=== PATIENT | female | born 1945 | race Caucasian/White ===

== ENCOUNTER → 2017-06-06 | Outpatient (CLI) | payer OTHER ==
[~2017-06-06] MED LIST: ALPRAZOLAM2 MG PO; AMBIEN 10 MG TA10 MG PO; AMITRIPTYLINE H25 M2 PO; ATIVAN0.5 MG PO; BACTRIM DS TAB1 EACH PO; BYSTOLIC2.5 MG PO; FEMHRT 0.5 MG-1 EACH PO; HYDROCODON-ACE1 EAC5 PO; HYDROCODONE-AP1 EAC6 PO; HYDROXYCHLOROQ200 M1 PO; LISINOPRIL5 MG PO; MEDROLDOSEPACK PO; MELOXICAM15 MG PO; MOBIC7.5 M1 PO; NABUMETONE 500500 M1 PO; NEURONTIN 300300 M1 PO; NEURONTIN300 MG PO; NORCO 5-325 TA1 EACH PO; NORFLEX100 MG PO; OMEPRAZOLE 20 M20 M1 PO; PERCOCET 10-321 EACH; PERCOCET PO; PREDNISONE 5 MG5 M1 PO; PREVACID15 MG PO; PRILOSEC20 MG PO; REQUIP 0.25 M0.25 MG PO; TESSALON PERLE100 MG PO; TIZANIDINE HCL 22 M1 PO; TRAMADOL 50 MG50 MG PO; VALACYCLOVIR500 MG PO; VITAMIN D 5050000 I1 PO; VITAMIN D-40400 UNIT PO; VITAMIN D250000 UNIT PO; WELLBUTRIN SR150 MG PO; XANAX 0.25 MG0.25 MG PO; XANAX 0.5 MG0.5 MG PO; ZANAFLEX2 M1 PO; ZANAFLEX4 MG PO; ZOFRAN ODT4 MG DISSOLVE; ZOFRAN ODT4 MG PO; ZOLPIDEM TARTRA10 MG PO
== END ==
LOC: RAD 04:53
DX: Z12.31 Encounter for screening mammogram for malignant neoplasm of breast (principal)

== ENCOUNTER → 2018-07-10 | Outpatient (CLI) | payer OTHER | LOC: CAT 11:31 | DX: Z13.6 Encounter for screening for cardiovascular disorders (principal); E78.00 Pure hypercholesterolemia, unspecified ==

== ENCOUNTER → 2019-07-04 | Outpatient (CLI) | payer OTHER | LOC: RAD 02:03 | DX: Z12.31 Encounter for screening mammogram for malignant neoplasm of breast (principal) ==

== ENCOUNTER → 2020-02-05 | Outpatient (CLI) | payer OTHER ==
[~2020-02-05] MED LIST changes: +ASPIRIN EC81 M1 PO; +CRESTOR20 MG PO; +PROPRANOLOL 1010 MG PO; +PROTONIX40 M4 PO
== END ==
LOC: SJCVCIMAG 10:19 → SJCVC 10:19
DX: I65.23 Occlusion and stenosis of bilateral carotid arteries (principal); R07.9 Chest pain, unspecified; I10 Essential (primary) hypertension; E78.00 Pure hypercholesterolemia, unspecified; R93.1 Abnormal findings on diagnostic imaging of heart and coronary circulation; R06.02 Shortness of breath; R53.83 Other fatigue; R09.89 Other specified symptoms and signs involving the circulatory and respiratory systems

== ENCOUNTER 2020-02-10 06:45 | Observation (INO) | payer OTHER ==
[~2020-02-10] VITALS: Ht 142.2 cm; Wt 68.9 kg
[~2020-02-10 06:45] MED LIST changes: -ASPIRIN EC81 M1 PO; -CRESTOR20 MG PO; -PROPRANOLOL 1010 MG PO; -PROTONIX40 M4 PO
[2020-02-10 07:15] VITALS: BP 143/61
[2020-02-10 07:42] LABS: HEMATOCRIT 36.9 % (37.0-47.0); HEMOGLOBIN 12.8 gm/dL (12.0-15.0); MCH 32.2 pg (26.0-34.0); MCHC 34.8 g/dL (28.0-37.0); MCV 92.4 fL (80.0-100.0); RBC 3.99 mil/uL (4.20-5.00); RDW 13.2 % (10.5-14.5); WBC 8.5 thou/uL (4.0-11.0)
[2020-02-10] MEDS ORDERED: ASPIRIN EC81 M1 PO (07:47)
[2020-02-10] MEDS ORDERED: PREDNISONE 5 MG5 M1 PO (07:48)
[2020-02-10] MEDS ORDERED: PROTONIX40 M4 PO (07:48)
[2020-02-10] MEDS ORDERED: PROPRANOLOL 1010 MG PO (07:49)
[2020-02-10] MEDS ORDERED: CRESTOR20 MG PO (07:49)
[2020-02-10 07:53] LABS: CALCIUM 8.9 mg/dL (8.5-10.1); CREATININE 1.1 mg/dL (0.6-1.0); POTASSIUM 3.8 mmol/L (3.5-5.1)
--- NOTE | 2020-02-10 08:11 | EKG ---
[facility] [place] [address] ELECTROCARDIOGRAM REPORT Name: AUSTEN MARIN Room #: REG [facility]..#: [id number] Admission: 02/10/20 Attend Phys: Mitul Kaminski MD, Discharge: Date of : 43 Report #: [id number] THIS REPORT FOR: cc: Gallo Bernal MD, Eric K. MD Lundgren,Raulito Vega MD [facility] ~ THIS REPORT FOR: //name// [facility] Test Date: 2020-02-10 Test Time: 07:18:56 Pat Name: AUSTEN MARIN Department: Room: Gender: F Neck Band Setter: [facility] : 1945 Requested By: Mitul Kaminski Order Number: [id number] MD: Raulito Jenkins Measurements Intervals [place] Rate: 69 P: 28 DE: 154 QRS: 6 QRSD: 81 T: 32 QT: 398 QTc: 427 Interpretive Statements Sinus rhythm Abnormal R-wave progression, early transition Compared to ECG 02/08/2016 03:18:25 No significant changes Electronically Signed On 02-10-2020 8:09:09 CDT by Raulito Jenkins [email or web address] <ELECTRONICALLY SIGNED> By: Raulito Jenkins MD, [facility] 02/10/20 0809 7 7 Raulito Jenkins MD, [facility] /EPI
[2020-02-10 11:25] VITALS: BP 124/59
[2020-02-10 12:32] VITALS: BP 114/60
--- NOTE | 2020-02-10 12:36 | NUR ---
REPORT RECIEVED CHAU OLSEN RN. PT ORIENTED TO ROOM AND UNIT, BED LOW AND LOCKED, SIDE RAILS UPX3, CALL LIGHT IN REACH AND TELE APPLIED. WILL CONTINUE TO ASSESS.
[2020-02-10 14:45] VITALS: BP 120/65
[2020-02-10 16:20] VITALS: BP 147/71
--- NOTE | 2020-02-10 17:06 | CATHLAB ---
[facility] [place] [address] INVASIVE PROCEDURE REPORT Name: AUSTEN MARIN Room #: 208-P ADM Saturnino Mosley#: [id number] Admission: 02/10/20 Attend Phys: Mitul Kaminski MD, Discharge: Date of : 43 Report #: [id number] THIS REPORT FOR: cc: Gallo Bernal MD, Eric K. MD Mancuso, Gerald M. MD [facility] ~ APPROVED REPORT Study performed: 02/10/2020 08:13:58 Patient Details Patient Status: Out-Patient Room #: The patient is a 75 year-old female Event Personnel Mitul Kaminski Bevel Polisher, Amy Gardner RN RN, Nilda Phoenix RTR, Ortiz Collier Sherra RTR Monitor Procedures Performed Art Access - R femoral artery* Left Heart Cath w/or w/o Coronaries [id number] [facility] [address] Place w/wo Plasty Single CIRC 560626 Aortogram Abdominal Peripheral Angio 199048 Renal Bilateral Peripheral Angiography 5912881 CVRENALBIL 09940 Initial Mod Sed Same Phys/QHP Gr5y 113132 58263 Mod Sed Same Phys/QHP Ea 042390 Indication Chest pain Procedure Narrative The Right Groin^ was infiltrated with 1% Lidocaine subcutaneous anesthesia. A PINNACLE 6FR Sheath #[id number] sheath was inserted into the RFA^. Coronary angiography was performed using coronary diagnostic catheters. The right coronary system was accessed and visualized with a JR4 catheter. The left coronary system was accessed and visualized with a JL4 catheter. The left ventricle was accessed and visualized with a PIGTAIL catheter. Left ventriculogram was performed in 30 degree projection. An aortogram of the abdominal aorta was performed. Closure device was deployed with a 6 Fr MYNX MINERAL TECHNOLOGIST. The patient tolerated the procedure well and there were no complications associated with the procedure. There was no hematoma. Intraoperative Conscious Sedation [facility] [place] [address] INVASIVE PROCEDURE REPORT Name: AUSTEN MARIN JOHN Room #: 208-P [facility] IN .R.#: [id number] Admission: 02/10/20 Attend Phys: Mitul Kaminski, Discharge: Date of : 43 Report #: [id number] Sedation start time: 841 Case end Time: 938 Fentanyl 100 mcg Versed 2.0 mg Fluoro Time: 7.15 minutes Dose: DAP 6528.00 cGycm2 Contrast Type and Amount: Visipaque 175 ml Hemodynamics The aortic pressure is 189/86 mmHg with a mean of 122 mmHg. The left ventricular pressure is 175/9 mmHg with a mean of mmHg. The left ventricular end diastolic pressure is 26 mmHg. PCI Technique Lesion Percutaneous coronary intervention was performed on the proximal circumflex artery segment. A LAUNCHER 6FR EBU 3.5 #[id number] Guide Catheter was used to engage the ostium. A Luge Wire .014 x 182CM #[id number] Interventional Guidewire was used to cross the lesion. BALLOON DILATION A Balloon catheter Sprinter OTW 2.25 x 12 #[id number] was inserted and inflated up to 8.00atm for 23seconds. Additional Inflation: 10.00atm for 17seconds. STENT DEPLOYMENT A drug-eluting stent RESOLUTE MYLES OTW 2.25 X 12 #[id number] was inserted and inflated up to 14.00atm for 32seconds. Conclusion 1. Successful PTCA stent of a high-grade proximal circumflex stenosis to 0% with placement of a 2.25 x 12 resolute myles postdilated 2.4 mm CELINA grade III flow 0% residual. #2 left main free of disease giving rise to LAD and circumflex #3 LAD extends around the apex with mild irregularity no occlusive disease. #4 anatomically dominant for relatively small RCA PDA system eccentric 3040% proximal stenosis mild distal disease in a relatively small and attenuated PDA HINA. #5 selective renal angiography a dual supply to the left kidney have only mild ostial disease. Right renal artery is single and mildly diseased mild atherosclerosis #6 the aortoiliac system is tortuous and mild to moderately calcified no definite aneurysm exist #7 normal ventricular size and systolic function EF 60% 1+ mitral regurgitation. [facility] [address] [place] [address] INVASIVE PROCEDURE REPORT Name: TANIAAUSTEN JOHN Room #: 208-P [facility] IN M.R.#: [id number] Admission: 02/10/20 Attend Phys: Mitul Kaminski, Discharge: Date of : 43 Report #: [id number] Recommendations and plan: Continue aggressive risk factor modification. Dual antiplatelet therapy initiated. Transferred to CCU in stable condition to follow post stent protocol. <ELECTRONICALLY SIGNED> By: Mitul Kaminski MD, FAC 02/10/201703 03 03 Mitul Kaminski MD, FAC /INF
[2020-02-10 19:22] VITALS: BP 122/69
[2020-02-11 00:53] VITALS: BP 108/64
[2020-02-11 04:35] VITALS: BP 140/54
[2020-02-11 07:07] LABS: HEMATOCRIT 36.8 % (37.0-47.0); HEMOGLOBIN 12.6 gm/dL (12.0-15.0); MCH 31.4 pg (26.0-34.0); MCHC 34.1 g/dL (28.0-37.0); MCV 92.1 fL (80.0-100.0); RDW 13.4 % (10.5-14.5); WBC 9.7 thou/uL (4.0-11.0)
[2020-02-11] MEDS ORDERED: EFFIENT10 MG PO (07:17)
[2020-02-11] MEDS ORDERED: ASPIRIN325 PO (07:17)
[2020-02-11 07:25] VITALS: BP 119/56
[2020-02-11 07:30] LABS: ALBUMIN 3.3 g/dL (3.4-5.0); ANION GAP 6 mmol/L (7-16); BUN 14 mg/dL (7-18); CALCIUM 8.5 mg/dL (8.5-10.1); CHLORIDE 100 mmol/L (98-107); CO2 29 mmol/L (21-32); GLUCOSE 91 mg/dL (74-106); POTASSIUM 4.3 mmol/L (3.5-5.1); SGOT 16 U/L (15-37); SGPT 22 U/L (30-65); SODIUM 135 mmol/L (136-145); TOTAL BILIRUBIN 0.4 mg/dL (<0.1-1.0); TOTAL PROTEIN 6.5 g/dL (6.4-8.2); TROPONIN-I <0.06 ng/mL (<0.06)
--- NOTE | 2020-02-11 08:05 | EKG ---
[facility] [place] [address] ELECTROCARDIOGRAM REPORT Name: AUSTEN MARIN Room #: 208-P [facility] M.R.#: [id number] Admission: 02/10/20 Attend Phys: Mitul Kaminski MD, Discharge: Date of : 43 Report #: [id number] THIS REPORT FOR: cc: Gallo Bernal MD, Eric K. MD Couchonnal, Luis F. MD ~ THIS REPORT FOR: //name// [facility] Test Date: 2020-02-10 Test Time: 10:13:31 Pat Name: AUSTEN MARIN Department: Room: 208 Gender: F Parboiler: Seymour ROSE : 1945 Requested By: Mitul Kaminski Order Number: [id number] MD: Damian Grayson Measurements Intervals [place] Rate: 64 P: 13 [place]: 148 QRS: 7 QRSD: 88 T: 31 QT: 415 QTc: 428 Interpretive Statements Sinus rhythm Abnormal R-wave progression, early transition Compared to ECG 02/10/2020 07:18:56 No significant changes Electronically Signed On 02-11-2020 8:03:56 CDT by Damian Grayson [email or web address] <ELECTRONICALLY SIGNED> By: Damian Grayson MD 02/11/20 0803 1013 1013 Damian Grayson MD /EPI
--- NOTE | 2020-02-11 09:46 | NUR ---
ASSUMED CARE 0700. A/O X4 FROM HOME. RIGHT GROIN SIGHT C/D/I BRUISE XAVIER. CARDIAC REHAB NURSE REVIEW POST SENT/CATH CARE. DC ORDERS IN. PT WILL DC HOME WITH SELF CARE. REVIEWED DISCHARGE PAPER WORK AND MEDICATIONS. DENIES PAIN, DENIES SOA. NSR ON TELE.
[2020-02-11 09:51] VITALS: BP 119/56
== END 2020-02-11 11:30 | disposition home or self-care (01) ==
LOC: CATH 06:45 → 2N 11:31
PROVIDERS: ADMIT Internal Medicine Cardiovascular Disease
DX: I25.10 Atherosclerotic heart disease of native coronary artery without angina pectoris (principal); I65.29 Occlusion and stenosis of unspecified carotid artery; I10 Essential (primary) hypertension; E78.5 Hyperlipidemia, unspecified

== ENCOUNTER 2020-02-28 03:29 | Inpatient (IN) | payer OTHER ==
[~2020-02-28] VITALS: Ht 142.2 cm; Wt 65.3 kg
[~2020-02-28 03:29] MED LIST changes: +ASPIRIN EC81 M1 PO; +ASPIRIN325 PO; +CRESTOR20 MG PO; +EFFIENT10 MG PO; +PROPRANOLOL 1010 MG PO; +PROTONIX40 M4 PO
[2020-02-28 03:44] VITALS: BP 147/61
[2020-02-28 04:40] LABS: ABSOLUTE NEUTROPHILS 16.7 thou/uL (1.4-8.2); BASOPHILS 0.2 % (0.0-2.0); EOSINOPHILS 0.2 % (0.0-3.0); HEMATOCRIT 38.6 % (37.0-47.0); LYMPHOCYTES 5.3 % (24.0-44.0); MCH 31.4 pg (26.0-34.0); MCHC 33.8 g/dL (28.0-37.0); MCV 92.9 fL (80.0-100.0); MONOCYTES 6.7 % (1.0-8.0); PLATELET COUNT 206 thou/uL (150-400); POLYS 87.6 % (36.0-66.0); RBC 4.16 mil/uL (4.20-5.00); RDW 13.3 % (10.5-14.5); WBC 19.1 thou/uL (4.0-11.0)
[2020-02-28 04:41] LABS: ANION GAP 7 mmol/L (7-16); BUN 19 mg/dL (7-18); CALCIUM 8.9 mg/dL (8.5-10.1); CHLORIDE 100 mmol/L (98-107); CO2 28 mmol/L (21-32); CREATININE 1.1 mg/dL (0.6-1.0); GLUCOSE 138 mg/dL (74-106); POTASSIUM 4.3 mmol/L (3.5-5.1); SODIUM 135 mmol/L (136-145)
[2020-02-28 04:52] LABS: ALBUMIN 3.8 g/dL (3.4-5.0); DIRECT BILIRUBIN < 0.1 mg/dL (<0.1-0.2); LIPASE 119 U/L (73-393); SGOT 20 U/L (15-37); SGPT 29 U/L (30-65); TOTAL BILIRUBIN 0.4 mg/dL (0.2-1.0); TOTAL PROTEIN 7.1 g/dL (6.4-8.2); TROPONIN-I <0.06 ng/mL (<0.06)
[2020-02-28 06:53] VITALS: BP 113/60
[2020-02-28 06:58] VITALS: BP 113/60
[2020-02-28 07:35] VITALS: BP 120/60
--- NOTE | 2020-02-28 09:43 | EKG ---
[facility] [place] [address] ELECTROCARDIOGRAM REPORT Name: AUSTEN MARIN Room #: 454-P ADM IN M.R.#: [id number] Admission: 02/28/20 Attend Phys: Federico Roberto MD Discharge: Date of : 43 Report #: [id number] THIS REPORT FOR: cc: [facility] - Clinic physician unknown [facility] - Clinic physician unknown Damian Grayson MD ~ THIS REPORT FOR: //name// [facility] ED Test Date: 2020-02-28 Test Time: 03:39:49 Pat Name: AUSTEN MARIN Department: Room: [facility] Gender: F Storage Administrator: [email or web address] : 1945 Requested By: Fany Jorge Order Number: [id number] MD: Damian Grayson Measurements Intervals [place] Rate: 81 P: 34 ND: 138 QRS: 29 QRSD: 83 T: 56 QT: 383 QTc: 445 Interpretive Statements Sinus rhythm Abnormal R-wave progression, early transition Minimal ST depression, anterolateral leads Compared to ECG 02/10/2020 10:13:31 ST (T wave) deviation now present Electronically Signed On 02-28-2020 9:41:43 CDT by Damian Grayson [email or web address] <ELECTRONICALLY SIGNED> By: Damian Grayson MD 02/28/20 0941 0339 Damian Grayson MD /EPI
--- NOTE | 2020-02-28 11:47 | NUR ---
PT ARRIVED ON UNIT FROM ER THIS MORNING AROUND 0745. PT IS AOX4, PAIN WAS ON LUQ WAS CONTROLLED WITH IV MORPHINE. PT IS UP AD YANIRA WITH STAND BY ASSIST TO BSC. PT FEELS UNSTEADY D/T MORPHINE MEDICATION. PT IV IS PATENT ON LEFT FA. DR. TARANGO WAS CALLED FOR ORDERS. NURSE EDUCATED PT TO USE CALL LIGHT. PT REMAINS NPO AT THIS TIME. NO SKIN BREAKDOWN NOTED. WILL CONTINUE TO MONITOR.
[2020-02-28 16:13] VITALS: BP 127/65
[2020-02-28 19:40] VITALS: BP 141/72
[2020-02-29 03:48] VITALS: BP 120/70
--- NOTE | 2020-02-29 05:30 | NUR ---
PATIENT ALERT AND ORIENTED X4. UP TO BSC WITH SBA. IVF INFUSING W/O COMPLICATION. C/O PAIN TO ABDOMEN AND MEDICATED WITH MORPHINE X2 AT TIME OF NOTE. PATIENT PRESENTED ORAL TEMP OF 100.2 AT BEGINNING OF SHIFT. MEDICATED X2 WITH TYLENOL. LAST TEMP 99.3. PAIN LEVEL FROM 10 TO 7. PATIENT ABLE TO SLEEP OFF AND ON DURING THE NIGHT. STATES SHE IS FEELING BETTER AND LOOKING FORWARD TO OPERATION TODAY. ALSO GIVEN ZOFRAN FOR NAUSEA, NO EMESIS NOTED. RESTING QUIETLY. WILL MONITOR.
[2020-02-29 05:52] LABS: HEMATOCRIT 37.8 % (37.0-47.0); HEMOGLOBIN 12.8 gm/dL (12.0-15.0); MCHC 33.8 g/dL (28.0-37.0); MCV 94.7 fL (80.0-100.0); RBC 3.99 mil/uL (4.20-5.00); RDW 13.8 % (10.5-14.5); WBC 21.6 thou/uL (4.0-11.0)
[2020-02-29 06:32] LABS: CALCIUM 8.5 mg/dL (8.5-10.1); CREATININE 0.9 mg/dL (0.6-1.0); POTASSIUM 3.7 mmol/L (3.5-5.1)
[2020-02-29 18:30] VITALS: BP 142/65
--- NOTE | 2020-02-29 20:04 | NUR ---
Assumed patient care at 0715. LSCTA, BS x's 4, ABD distended and tender, skin is clean, dry and intact. Patient had a Lap Veronica this am performed by Dr Espinal. Vital signs have been stable since after surgery. Patient had an oral Temp of 99.0 prior to procedure. It is now 98.2. Patient has been requesting pain medication for "level seven" abdominal pain. Pain medications are only partially effective (have been rotating between Morphine IV Push and po Hydrocodone). Patient is drinking fluids, has 0.45% NS running in right forearm IV at 100mL/hr. Lap Veronica sites are glued and intact. No drainage and/or s/s of infection. No nausea and/or vomiting. Patient has consumed approximately 25 percent of both lunch and dinner. Report given to on-coming nurse.
[2020-02-29 23:43] VITALS: BP 111/70
--- NOTE | 2020-03-01 03:37 | NUR ---
ASSUMED PT CARE AROUND 1914. AXOX4. INDENPENDENT WITH ADLs. PAIN MANAGED PER MD ORDER. LAP SITES INTACT. C/O COUGHING AFTER SURGERY. OBTAINED NEW ORDER FOR COUGH SYRUPS. NO S/S ACUTE DISTRESS NOTED OR REPORTED AT THIS TIME. WILL CONT TO MONITOR FOR ANY CHANGES IN CONDITION.
[2020-03-01 04:11] VITALS: BP 112/73
[2020-03-01 08:46] VITALS: BP 140/64
[2020-03-01 09:38] LABS: HEMATOCRIT 33.5 % (37.0-47.0); HEMOGLOBIN 11.5 gm/dL (12.0-15.0); MCH 32.1 pg (26.0-34.0); MCHC 34.4 g/dL (28.0-37.0); MCV 93.2 fL (80.0-100.0); RBC 3.6 mil/uL (4.20-5.00); RDW 13.4 % (10.5-14.5); WBC 18.4 thou/uL (4.0-11.0)
--- NOTE | 2020-03-01 11:00 | NUR ---
discussed during los, dc home today no needs per MD. will cont following as needed for dc needs.
[2020-03-01 13:26] VITALS: BP 140/64
--- NOTE | 2020-03-02 11:46 | O ---
[facility] [place] [address] OPERATIVE REPORT Name: AUSTEN MARIN Room #: 462-P DIS IN M.R.#: [id number] Admission: 02/28/20 Attend Phys: Federico Roberto MD Discharge: 03/01/20 Date of : 43 Report #: [id number] THIS REPORT FOR: cc: [facility] - Clinic physician unknown [facility] - Clinic physician unknown Sampson Espinal MD ~ CC: Federico WHELAN unknown DATE OF SERVICE: 02/29/2020 POSTOPERATIVE DIAGNOSIS: Acute cholecystitis. POSTOPERATIVE DIAGNOSIS: Acute gangrenous cholecystitis. PROCEDURE: Laparoscopic cholecystectomy. SURGEON: Sampson Espinal MD ANESTHESIA: General. ESTIMATED BLOOD LOSS: 20 mL. SPECIMEN: Gallbladder. DESCRIPTION OF PROCEDURE: After informed consent was obtained, the patient was brought to the operating room and placed supine. SCDs were placed and working, preoperative antibiotics were administered, general anesthesia was induced. The abdomen was prepped and draped in the usual sterile fashion. A 10 mm incision was made above the umbilicus. Fascia was incised and a trocar was placed. Pneumoperitoneum was established. Three right upper quadrant 5 mm ports were placed. Gallbladder was noted to be severely inflamed, gangrenous. It was grasped at the fundus and retracted cephalad. Infundibulum was grasped and retracted laterally. I dissected out the cystic duct and cystic artery. The cystic plate was fully identified. The cystic duct and artery were clipped and ligated leaving 2 clips on the remaining artery and a clip and a PDS Endoloop on the remaining duct. Gallbladder was then taken off the liver bed with electrocautery. It was placed into an Endopouch and removed. Liver bed was irrigated with normal saline. There was good hemostasis. There was a small amount of oozing from the liver bed and given her history of Effient use, I elected to place FloSeal and Surgicel into the liver bed. There was excellent hemostasis after this. The ports were then removed under direct vision. The skin was closed with 4-0 Monocryl. Incisions were sealed with Dermabond. COMPLICATIONS: None. [facility] [address] [place] [address] OPERATIVE REPORT Name: AUSTEN MARIN [facility] Room #: 462-P [facility] IN M.R.#: [id number] Admission: 02/28/20 Attend Phys: Federico Roberto MD Discharge: 03/01/20 Date of : 43 Report #: [id number] DISPOSITION: The patient was taken to recovery in satisfactory condition. <ELECTRONICALLY SIGNED> By: Sampson Espinal MD 03/02/20 1146 0947 1001 Sampson Espinal MD /nt
--- NOTE | 2020-03-03 18:08 | PATH ---
[facility] [address] [place] [address] PATHOLOGY RPT PROCEDURE Name: MARTINE MARIN Room #: 462-P DIS IN M.R.#: [id number] Admission: 02/28/20 Date of : 43 Discharge: 03/01/20 Report #: [id number] Path Case #: [id number] [facility] Accession Number: [id number] . 01 Material submitted: . gallbladder - GALLBLADDER . 01 Clinical history: . Acute gangrenous cholecystitis . 02 Diagnosis: Gallbladder, excision: - Acute gangrenous cholecystitis; negative for malignancy. - Lithiasis . Lymph Node, "nallely-cystic duct," excision: - Reactive follicular lymphoid hyperplasia. (MLK:pit; 03/03/2020) QTP 03/03/2020 1727 Local . 02 Electronically signed: . Alexandre Acevedo MD, Pathologist NPI- [id number] . 01 Gross description: . The specimen is received in formalin, labeled "Martine Marin gallbladder" and consists of a previously punctured purple green gangrenous and partially fat encased gallbladder measuring 7.4 x 3.7 x 2.6 cm. The margin is inked. Opening reveals a soft brown calculi with its fragments measuring 5.1 x 4.3 x 1.9 cm in aggregate and no bile. The mucosa is smooth green-brown with a wall thickness of 0.1 cm. A lymph node is identified. No gross lesions are identified. Nitrator Operator sections are submitted in A1. (Tamra; 03/02/2020) JFQ/JFQ 03/02/2020 1444 Local . 02 Pathologist provided ICD-10: K81.0 . 02 CPT . 705549 Specimen Comment: A courtesy copy of this report has been sent to [phone] Specimen Comment: Report sent to Performed at: [facility], [place] [id number] MD Saleem Denny MD Phone: [phone] [address] [address] PATHOLOGY RPT PROCEDURE Name: MARTINE MARIN JOHN Room #: 462-P DIS IN M.R.#: [id number] Admission: 02/28/20 Date of : 43 Discharge: 03/01/20 Report #: [id number] Path Case #: [id number] Performed at: [address] [facility] [id number] MD Eddy Wild MD Phone: [phone]
== END 2020-03-01 14:00 | disposition home or self-care (01) | DRG 854 ==
LOC: ER 03:29 → EROBS 06:16 → 4W 06:16
PROVIDERS: Emergency Medicine; Nurse Practitioner Adult Health; ADMIT Hospitalist; ATTEND Hospitalist
PROC: 0FT44ZZ Resection of Gallbladder, Percutaneous Endoscopic Approach (ICD-10-PCS; principal; 2020-02-29)
DX: A41.9 Sepsis, unspecified organism (principal); K80.00 Calculus of gallbladder with acute cholecystitis without obstruction; R44.3 Hallucinations, unspecified; K82.A1 Gangrene of gallbladder in cholecystitis; I25.10 Atherosclerotic heart disease of native coronary artery without angina pectoris; E66.9 Obesity, unspecified; M54.5 Low back pain; I10 Essential (primary) hypertension; M48.00 Spinal stenosis, site unspecified; G89.29 Other chronic pain; E78.5 Hyperlipidemia, unspecified; R25.1 Tremor, unspecified; K21.0 Gastro-esophageal reflux disease with esophagitis; G47.00 Insomnia, unspecified; E78.00 Pure hypercholesterolemia, unspecified; Z95.5 Presence of coronary angioplasty implant and graft; Z98.891 History of uterine scar from previous surgery; Z79.82 Long term (current) use of aspirin; Z79.899 Other long term (current) drug therapy; Z88.0 Allergy status to penicillin; Z87.891 Personal history of nicotine dependence; Z68.32 Body mass index [BMI] 32.0-32.9, adult; Z72.89 Other problems related to lifestyle; Z03.818 Encounter for observation for suspected exposure to other biological agents ruled out
CPT/HCPCS: 10040; 10045; 50101; 50249; 50411; 50445; 50555; 50900; 51297; 51489; 51751; 52265; 52266; 52287; 53307; 53312; 53314; 54022; 54118; 55245; 55317; 56462; 56525; 56526; 62110; 62900; 70005

== ENCOUNTER 2020-03-03 10:59 | Emergency (ER) | payer OTHER ==
[~2020-03-03] VITALS: Ht 142.2 cm; Wt 68.0 kg
[2020-03-03 13:14] LABS: ABSOLUTE NEUTROPHILS 9.1 thou/uL (1.4-8.2); BASOPHILS 0.4 % (0.0-2.0); EOSINOPHILS 1.3 % (0.0-3.0); HEMATOCRIT 35.1 % (37.0-47.0); LYMPHOCYTES 6.1 % (24.0-44.0); MCH 31.9 pg (26.0-34.0); MCHC 34.1 g/dL (28.0-37.0); MCV 93.5 fL (80.0-100.0); MONOCYTES 9.3 % (1.0-8.0); PLATELET COUNT 166 thou/uL (150-400); POLYS 82.9 % (36.0-66.0); RBC 3.76 mil/uL (4.20-5.00); RDW 13.5 % (10.5-14.5)
[2020-03-03 13:37] LABS: ANION GAP 9 mmol/L (7-16); BUN 11 mg/dL (7-18); CALCIUM 8.8 mg/dL (8.5-10.1); CHLORIDE 100 mmol/L (98-107); CO2 28 mmol/L (21-32); CREATININE 0.9 mg/dL (0.6-1.0); GLUCOSE 105 mg/dL (74-106); POTASSIUM 3.1 mmol/L (3.5-5.1); SODIUM 137 mmol/L (136-145)
[2020-03-03 13:48] LABS: ALBUMIN 3.2 g/dL (3.4-5.0); LIPASE 1015 U/L (73-393); SGOT 34 U/L (15-37); SGPT 47 U/L (30-65); TOTAL BILIRUBIN 0.7 mg/dL (0.2-1.0); TROPONIN-I <0.06 ng/mL (<0.06)
[2020-03-03] MEDS ORDERED: VIBRAMYCIN 100100 MG PO (15:46)
[2020-03-03 16:31] VITALS: BP 113/45
--- NOTE | 2020-03-04 08:29 | EKG ---
[facility] [place] [address] ELECTROCARDIOGRAM REPORT Name: AUSTEN MARIN Room #: DEP [facility]#: [id number] Admission: 03/03/20 Attend Phys: Discharge: 03/03/20 Date of : 43 Report #: [id number] THIS REPORT FOR: cc: [facility] - Clinic physician unknown [facility] - Clinic physician unknown Raulito Jenkins MD [facility] THIS REPORT FOR: //name// [facility] ED Test Date: 2020-03-03 Test Time: 11:17:49 Pat Name: AUSTEN MARIN Department: Room: Gender: F Digital Content Marketing Manager: : 1945 Requested By: Jalen Gatica Order Number: [id number] MD: Raulito Jenkins Measurements Intervals [place] Rate: 85 P: 15 [place]: 117 QRS: 8 QRSD: 80 T: 17 QT: 338 QTc: 402 Interpretive Statements Sinus rhythm Nonspecific ST segment abnormality Abnormal R-wave progression, early transition Compared to ECG 02/28/2020 03:39:49 ST (T wave) deviation no longer present No significant change was found Electronically Signed On 03-04-2020 8:27:18 CDT by Raulito Jenkins [email or web address] <ELECTRONICALLY SIGNED> By: Raulito Jenkins MD, [facility] 03/04/20 0827 1117 1117 Raulito Jenkins MD, [facility] /EPI
== END 2020-03-03 16:53 | disposition home or self-care (01) ==
LOC: ER 10:59
PROVIDERS: Emergency Medicine
DX: K85.90 Acute pancreatitis without necrosis or infection, unspecified (principal); R05 Cough; I10 Essential (primary) hypertension; Z79.899 Other long term (current) drug therapy; Z88.0 Allergy status to penicillin; Z90.49 Acquired absence of other specified parts of digestive tract

== ENCOUNTER → 2020-06-08 | Outpatient (CLI) | payer OTHER ==
[~2020-06-08] MED LIST changes: +VIBRAMYCIN 100100 MG PO
== END ==
LOC: SJCVCIMAG 07:34
PROVIDERS: ATTEND Internal Medicine Cardiovascular Disease
DX: I25.10 Atherosclerotic heart disease of native coronary artery without angina pectoris (principal); I10 Essential (primary) hypertension; E78.00 Pure hypercholesterolemia, unspecified; Z95.1 Presence of aortocoronary bypass graft; Z79.899 Other long term (current) drug therapy; Z87.891 Personal history of nicotine dependence

== ENCOUNTER → 2020-08-05 | Outpatient (CLI) | payer OTHER | LOC: BC 09:20 | PROVIDERS: ATTEND Internal Medicine | DX: Z12.31 Encounter for screening mammogram for malignant neoplasm of breast (principal) ==

== ENCOUNTER → 2020-11-23 | Outpatient (CLI) | payer OTHER | LOC: SJCVC 11:22 | PROVIDERS: ATTEND Internal Medicine Cardiovascular Disease | DX: R07.9 Chest pain, unspecified (principal); I10 Essential (primary) hypertension; E78.00 Pure hypercholesterolemia, unspecified; I25.10 Atherosclerotic heart disease of native coronary artery without angina pectoris; K21.9 Gastro-esophageal reflux disease without esophagitis; Z86.16 Personal history of COVID-19; Z79.899 Other long term (current) drug therapy; Z87.891 Personal history of nicotine dependence; Z72.89 Other problems related to lifestyle; Z88.0 Allergy status to penicillin ==

== ENCOUNTER → 2020-11-30 | Outpatient (CLI) | payer OTHER | LOC: SJCVCIMAG 08:33 | PROVIDERS: ATTEND Internal Medicine Cardiovascular Disease | DX: I25.10 Atherosclerotic heart disease of native coronary artery without angina pectoris (principal); R00.1 Bradycardia, unspecified; I10 Essential (primary) hypertension; E78.5 Hyperlipidemia, unspecified; Z88.0 Allergy status to penicillin; Z79.899 Other long term (current) drug therapy; Z86.73 Personal history of transient ischemic attack (TIA), and cerebral infarction without residual deficits; Z87.891 Personal history of nicotine dependence ==

== ENCOUNTER → 2021-02-17 | Outpatient (CLI) | payer OTHER | LOC: SJCVCIMAG 09:19 | PROVIDERS: ATTEND Internal Medicine Cardiovascular Disease | DX: I65.23 Occlusion and stenosis of bilateral carotid arteries (principal); I25.10 Atherosclerotic heart disease of native coronary artery without angina pectoris; I10 Essential (primary) hypertension; E78.00 Pure hypercholesterolemia, unspecified; R07.9 Chest pain, unspecified; K21.9 Gastro-esophageal reflux disease without esophagitis; Z95.5 Presence of coronary angioplasty implant and graft; Z88.0 Allergy status to penicillin; Z79.899 Other long term (current) drug therapy; Z86.16 Personal history of COVID-19; Z87.891 Personal history of nicotine dependence; Z82.49 Family history of ischemic heart disease and other diseases of the circulatory system ==

== ENCOUNTER → 2021-04-08 | Outpatient (CLI) | payer OTHER ==
[~2021-04-08] VITALS: Ht 144.8 cm; Wt 68.0 kg
[~2021-04-08] MED LIST changes: +IMDUR 30 MG TAB30 M1 PO; +PRAVACHOL40 MG PO; +SUPER THERAVIT1 EACH PO; +VITAMIN D250 MCG PO
[2021-04-08 07:06] VITALS: BP 145/74
[2021-04-08 08:17] LABS: HEMOGLOBIN 13.5 gm/dL (12.0-15.0); MCH 32.1 pg (26.0-34.0); MCHC 33.8 g/dL (28.0-37.0); RBC 4.21 mil/uL (4.20-5.00)
[2021-04-08 08:36] LABS: CALCIUM 9.4 mg/dL (8.5-10.1); CREATININE 0.9 mg/dL (0.6-1.0)
--- NOTE | 2021-04-08 15:33 | CATHLAB ---
[facility] [address] INVASIVE PROCEDURE REPORT Name: AUSTEN MARIN V Room #: REG TYLER [place]athaway.#: [id number] Admission: 04/08/21 Attend Phys: Mitul Kaminski MD, Discharge: Date of : 43 Report #: [id number] THIS REPORT FOR: cc: Gallo Bernal MD, Eric K. MD Mancuso, Gerald M. MD [facility] ~ APPROVED REPORT Study performed: 04/08/2021 08:53:40 Patient Details Patient Status: Out-Patient Room #: The patient is a 76 year-old female Event Personnel Mitul Kaminski Breaker Machine Tender, Trish Delcid RN RN, Nilda Phoenix RTR, PHARMACEUTICAL SPECIALTY REPRESENTATIVE Monitor, Joe Mckeon RTR Scrub Procedures Performed Art Access - R femoral artery* Left Heart Cath w/or w/o Coronaries [id number] [facility] [address] Initial Mod Sed Same Phys/QHP [facility] 377010 38867 Mod Sed Same Phys/QHP Ea 582959 Hemostasis w/ Mynx Indication Chest pain Procedure Narrative The Right Groin^ was infiltrated with 1% Lidocaine subcutaneous anesthesia. A PINNACLE 6FR Sheath #[id number] sheath was inserted into the RFA^. Coronary angiography was performed using coronary diagnostic catheters. The right coronary system was accessed and visualized with a JR4 catheter. The left coronary system was accessed and visualized with a JL4 catheter. The left ventricle was accessed and visualized with a PIGTAIL catheter. Left ventricular/Aortic Valve gradient assessed via catheter pullback. Left ventriculogram was performed in 30 degree projection. Pre-demployment femoral angiogram was performed . Closure device was deployed with a 6 Fr MYNXGRIP 6/7F #[id number]. The patient tolerated the procedure well and there were no complications associated with the procedure. There was no hematoma. Intraoperative Conscious Sedation Sedation start time: 09:42 Case end Time: [facility] [place] [address] INVASIVE PROCEDURE REPORT Name: AUSTEN MARIN Marco Room #: [facility]#: [id number] Admission: 04/08/21 Attend Phys: Mitul Kaminski, Discharge: Date of : 43 Report #: [id number] 10:07 Fentanyl 50 mcg Versed 1 mg Fluoro Time: 1.30 minutes Dose: DAP 2647.90 cGycm2 306 mGy Contrast Type and Amount: Omnipaque 75 ml Hemodynamics The aortic pressure is 177/66 mmHg with a mean of 110 mmHg. The left ventricular pressure is 167/6 mmHg with a mean of mmHg. The left ventricular end diastolic pressure is 27 mmHg. Conclusion #1 Hyperdynamic LV function EF 75%. #2 left main with ostial narrowing of 30% giving rise to LAD and circumflex. #3 LAD is tortuous widely patent no significant occlusive disease. #4 circumflex OM is nondominant previously placed proximal stent is widely patent no occlusive disease. #5 moderate disease in a relatively small dominant right coronary artery. The PDA is attenuated and supplying minimal LV. But this is unchanged would not be responsible for ischemia or anginal type symptoms. Recommendations and plan: Continue aggressive risk factor modification. She has recurrent chest pain I do not perceive this to be of an epicardial nature perhaps microvascular circulation. She wants to stop the nitrates which have not provided benefit. She has a lot of GI issues with reflexes may be the etiology. Follow-up will be arranged. <ELECTRONICALLY SIGNED> By: Mitul Kaminski MD, FACC 04/08/21 1532 153 153 Mitul Kaminski MD, FACC /INF
== END | disposition home or self-care (01) ==
LOC: CATH 06:23
PROVIDERS: ATTEND Internal Medicine Cardiovascular Disease
DX: R07.9 Chest pain, unspecified (principal); I25.10 Atherosclerotic heart disease of native coronary artery without angina pectoris; I10 Essential (primary) hypertension; E78.00 Pure hypercholesterolemia, unspecified; E78.5 Hyperlipidemia, unspecified; K21.9 Gastro-esophageal reflux disease without esophagitis; G89.29 Other chronic pain; M54.5 Low back pain; Z98.890 Other specified postprocedural states; Z79.899 Other long term (current) drug therapy; Z90.49 Acquired absence of other specified parts of digestive tract; Z87.891 Personal history of nicotine dependence; Z88.0 Allergy status to penicillin

== ENCOUNTER → 2021-08-30 | Outpatient (CLI) | payer OTHER | LOC: BC 14:03 | PROVIDERS: ATTEND Internal Medicine | DX: Z12.31 Encounter for screening mammogram for malignant neoplasm of breast (principal) ==